=== PATIENT | female | born 1995 | race Two or more races ===

== ENCOUNTER 2017-05-02 19:23 | Emergency (ER) | payer MEDICAID ==
[~2017-05-02] VITALS: Ht 177.8 cm; Wt 78.0 kg
[2017-05-02 20:08] LABS: Basophils # (auto) 0 uL; Basophils % (auto) 0.3 % (0.0-2.0); Eosinophils # (auto) 0 uL; Eosinophils % (auto) 0.4 % (0.0-7.0); Hematocrit 38.3 % (36.0-46.0); Hemoglobin 12.8 g/dL (12.2-16.2); Lymphocytes # (auto) 0.4 uL; Lymphocytes % (auto) 7.4 % (10.0-50.0); Mean Corpuscular Hemoglobin 28.1 pg (28.0-32.0); Mean Corpuscular Hgb Conc. 33.4 g/dL (32.0-36.0); Monocytes # (auto) 0.3 uL; Monocytes % (auto) 5.2 % (0.0-12.0); Neutrophils # (auto) 4.4 uL; Neutrophils % (auto) 86.7 % (37.0-80.0); Platelet Count (auto) 325 10^3/uL (140-450); Red Blood Cells 4.57 10^6/uL (4.0-5.20); Red Cell Distribution Width 14.3 % (11.8-14.3); White Blood Cell 5.1 10^3/uL (4.4-10.8)
[2017-05-02 20:18] LABS: Alcohol, Urine < 3.0 mg/dL (0-5); Amphetamine Screen, Urine NEGATIVE (NEGATIVE); Barbiturate Scree,Urine NEGATIVE (NEGATIVE); Benzodiazephine Screen, Urine NEGATIVE (NEGATIVE); Cannabinoid Screen, Urine POSITIVE (NEGATIVE); Cocaine Screen, Urine NEGATIVE (NEGATIVE); Opiate Scree,Urine NEGATIVE (NEGATIVE); Phencyclidine Screen, Urine NEGATIVE (NEGATIVE)
[2017-05-02 20:29] LABS: Albumin 3.8 g/dL (3.4-5.0); BUN/Creatinine Ratio 11.6; Bilirubin, Total 0.4 mg/dL (0.2-1.0); Calcium 8.4 mg/dL (8.5-10.1); Potassium 3.3 mmol/L (3.5-5.1); Total Protein 8.4 g/dL (6.4-8.2)
[2017-05-02 20:30] LABS: Urine Bacteria NONE SEEN /hpf (None Seen); Urine Blood TRACE /uL (Negative); Urine Mucus FEW (None Seen); Urine Specific Gravity 1.036 (1.001-1.035); Urine WBC 45 /hpf (0 - 5)
[2017-05-03 06:05] VITALS: BP 96/63
[2017-05-03] MEDS ORDERED: cefTRIAXone 1GM/10ml IVPUSH 10 ML IV ONE (06:50)
[2017-05-03] MEDS ORDERED: cefTRIAXone SOD 1,000 MG VL IM ONE (07:00)
== END 2017-05-03 07:17 | disposition home or self-care (01) ==
LOC: ER 19:23
DX: N12 Tubulo-interstitial nephritis, not specified as acute or chronic (principal)
CPT/HCPCS: 36415; 71046; 80053; 80307; 81001; 82150; 83690; 84702; 85025; 93005; 96372

== ENCOUNTER → 2017-05-02 | Emergency (ER) | payer MEDICAID, OTHER | END | disposition left against medical advice (07) | LOC: ER 14:31 | DX: R06.02 Shortness of breath (principal); Z53.21 Procedure and treatment not carried out due to patient leaving prior to being seen by health care provider ==

== ENCOUNTER 2024-06-18 11:07 | Emergency (ER) | payer MEDICAID ==
[~2024-06-18] VITALS: Ht 160 cm; Wt 100.1 kg
[2024-06-18 12:15] VITALS: BP 125/80; PULSE 80; RESP 18; TEMP 98.6; O2SAT 98
--- NOTE | 2024-06-18 12:37 | DVH ---
EXAM: XY R WRIST 3+ VIEW XRAY HISTORY: pain. r/o fracture COMPARISON: None TECHNIQUE: 3 views of the right wrist were performed. FINDINGS: No acute fracture or dislocation are identified about the right wrist. No significant degenerative ch anges. IMPRESSION: Unremarkable radiographs of the right wrist.
[2024-06-18] MEDS ORDERED: IBUP-1454 PO (12:57)
--- NOTE | 2024-06-18 12:57 | ED.PDOC ---
Musculoskeletal HPI Comments 29-year-old presents for a possible fracture to the right wrist after using a mechanical bull. Complains of pain with flexion-extension radial ulnar deviation. Pain rated as moderate. Denies any loss of sensation Chief Complaint: Upper Extremity Time Seen by MD: 11:54 Primary Care Provider: unknown Reviewed Notes: Nurses Notes, Medications, Allergies Allergies: Coded Allergies: NO KNOWN ALLERGIES (Unverified , 08/28/11) Home Meds No Active Prescriptions or Reported Meds Information Source: Patient Mode of Arrival: Ambulatory Past Medical History PAST MEDICAL HISTORY: Anemia Surgical History: Denies all surgeries ROLL TUBE SETTER History: No Pertinent ROLL TUBE SETTER History Family History Family History: No family hx of DM Social History Smoker: Non-Smoker Alcohol: Denies ETOH Use Drugs: Denies Drug Use Lives In: Home All Other Systems: Reviewed and Negative Physical Exam General Appearance: No Apparent Distress, Normal HEENT: Normal ENT Inspection, Pharynx Normal, TMs Normal Neck: Full Range of Motion, Non-Tender, Normal, Normal Inspection Respiratory: Chest Non-Tender, Lungs Clear, No Accessory Muscle Use, No Respiratory Distress, Normal Breath Sounds Cardiovascular: No Edema, No JVD, No Murmur, No Gallop, Normal Peripheral Pulses, Regular Rate/Rhythm Breast Exam: Deferred Gastrointestinal: No Organomegaly, Non Tender, No Pulsatile Mass, Normal Bowel Sounds, Soft Genitalia: Deferred Pelvic: Deferred Rectal: Deferred Extremities: No calf tenderness, Normal capillary refill, Normal inspection, Normal range of motion, Non-tender, No pedal edema Musculoskeletal : Location: Right Extremity Location: Wrist (Normal on inspection. Pain with flexion- extension) Apperance: Normal Neurologic: Alert, campus director II-XII nml as Tested, No Motor Deficits, Normal Affect, Normal Mood, No Sensory Deficits Cerebellar Function: Normal Reflexes: Normal Skin: Dry, Normal Color, Warm Lymphatic: No Adenopathy Was a procedure done? Was a procedure done?: No Differential Diagnosis EXT Differential Diagnosis: Fracture, Sprain X-Ray, Labs, Meds, VS Vital Signs Date Time Temp Pulse Resp B/P (MAP) Pulse Ox O2 Delivery O2 Flow Rate FiO2 06/18/24 12:15 80 18 98 Room Air 06/18/24 12:15 98.6 80 18 125/80 (95) 98 98.6 06/18/24 11:14 98.6 80 18 125/80 (95) 98 98.6 X-Ray, Labs, Meds, VS Comment History and examination consistent of muscular injury X-rays ordered, read by radiologist and reviewed by me Low likelihood of bony or more serious injury, VSS, pt stable Take IBU 600 w/ food as needed for pain Recommended heat therapy Reviewed RICE management Avoid heavy lifting or strenuous activity Recommended range of motion exercises and limit heavy activity for 1 week If no improvement advised patient to return to the emergency department for follow-up. Discussed possibility of a occult fracture Time of 1ST Reevaluation: 12:54 Reevaluation 1ST: Improved Patient Education/Counseling: Diagnosis, Treatment Family Education/Counseling: Diagnosis, Treatment Departure 1 Departure Time of Disposition: 12:54 Impression: Primary Impression: Wrist sprain Qualified Codes: S63.501A - Unspecified sprain of right wrist, initial encounter Disposition: HOME / SELF CARE / HOMELESS Condition: Stable e-Prescriptions Ibuprofen (Ibuprofen) 600 Mg Tab 1 TAB PO TID for 10 Days, #30 TAB 0 Refills Prov: BERYL PARKS NP 06/18/24 Critical Care Note Critical Care Time?: No Stability Stability form required: No Heart Score Heart Score: Heart Score Response (Comments) Value History N/A 0 EKG N/A 0 Age N/A 0 Risk Factors N/A 0 Troponin N/A 0 Total 0 BERYL PARKS NP Jun 18, 2024 12:57
== END 2024-06-18 12:59 | disposition home or self-care (01) ==
LOC: ER 11:07
DX: S63.501A Unspecified sprain of right wrist, initial encounter (principal); X58.XXXA Exposure to other specified factors, initial encounter; Y93.89 Activity, other specified; Y92.89 Other specified places as the place of occurrence of the external cause; Y99.8 Other external cause status
CPT/HCPCS: 73110